=== PATIENT | female | born 1930 | race Caucasian/White ===

== ENCOUNTER 2018-12-02 13:03 | Inpatient (IN) | payer OTHER, MEDICAID ==
[~2018-12-02] VITALS: Ht 170.2 cm; Wt 61.2 kg
--- NOTE | 2018-12-02 13:03 | NUR ---
PT BROUGHT IN BY BLS TO ER BED 03
[2018-12-02 13:21] VITALS: BP 154/77
--- NOTE | 2018-12-02 13:25 | NUR ---
88 Y FEMALE PT BIB TRANSPORT FOR DYSURIA X3 DAYS WITH FOUL ODOR. BROUGHT FROM [facility] FOR DYSURIA AND INCREASED DEMENTIA. FACILITY WANTS TO ENCOURAGE FLUIDS. PT ALERT TO SELF. VSS AT THIS TIME. BED IS DOWN, LOCKED, BED RAIL X 2, ERMD TO SEE PT. MEDHX:DEMENTIA, MUSCLE WEAKNESS, PRIMARY HTN, REPEATED FALLS
--- NOTE | 2018-12-02 13:26 | NUR ---
language barrier pt is arabic speaking
[2018-12-02] MEDS ORDERED: [UNRECOGNIZED DRUG - CODE] OP (13:31)
[2018-12-02] MEDS ORDERED: MEGE40SU3 PO (13:31)
--- NOTE | 2018-12-02 14:25 | NUR ---
Urinary catheter inserted utilizing sterile technique. Immediate return of urine noted. Urine sample collected and sent to lab. Pt tolerated procedure WELL.
--- NOTE | 2018-12-02 14:36 | NUR ---
PATIENT REFUSED EKG. DOCTOR NURSE NOTIFIED.
[2018-12-02 14:39] LABS: BASOPHILS % (AUTO) 0.7 % (0.0-2.0); EOSINOPHILS # (AUTO) 0.2 K/uL (0-0.4); EOSINOPHILS % (AUTO) 3.1 % (0.0-4.0); HEMATOCRIT 35.9 % (36-48); HEMOGLOBIN 11.8 g/dL (12.0-16.0); LYMPHOCYTES # (AUTO) 1.9 K/uL (2.5-16.5); MEAN CORPUSCULAR HEMOGLOBIN 31 pg (27-31); MEAN CORPUSCULAR HGB CONC 33 g/dL (33-37); MONOCYTES # (AUTO) 0.4 K/uL (0.8-1.0); MONOCYTES % (AUTO) 8.8 % (1.7-9.3); NEUTROPHILS # (AUTO) 2.5 K/uL (1.8-7.7); NEUTROPHILS % (AUTO) 49.4 % (42.2-75.2); PLATELET COUNT (AUTO) 199 K/uL (140-450); RED BLOOD CELL COUNT(AUTO) 3.86 MIL/uL (4.20-5.40); RED CELL DISTRIBUTION WIDTH 15.3 % (11.6-13.7); WHITE BLOOD COUNT (AUTO) 5.1 K/uL (4.8-10.8)
[2018-12-02 15:00] LABS: PROTHROMBIN TIME 10.1 secs (10.8-13.4)
[2018-12-02 15:04] LABS: APPEARANCE,URINE HAZY (CLEAR); BILIRUBIN,URINE NEGATIVE (NEGATIVE); BLOOD, URINE NEGATIVE (NEGATIVE); COLOR,URINE YELLOW (YELLOW); LEUKOCYTE ESTERASE ,URINE NEGATIVE (NEGATIVE); NITRITE, URINE NEGATIVE (NEGATIVE); UGLUCOSE NEGATIVE (NEGATIVE)
[2018-12-02 15:06] LABS: MAGNESIUM 2.4 mg/dL (1.8-2.4)
[2018-12-02 15:07] LABS: ASPARTATE AMINOTRANSFERASE 13 U/L (15-37); CARBON DIOXIDE 27.1 mmol/L (21-32); CHLORIDE 103 mmol/L (98-107); CREATININE 0.7 mg/dL (0.6-1.3); GLUCOSE 98 mg/dL (74-106); POTASSIUM 4.1 mmol/L (3.5-5.1); SODIUM SERUM 141 mmol/L (136-145); TOTAL BILIRUBIN 0.3 mg/dL (0.0-1.0); UREA NITROGEN, BLOOD 18 mg/dL (7-18)
[2018-12-02 15:11] LABS: ACETONE, SERUM NEGATIVE (NEGATIVE)
--- NOTE | 2018-12-02 15:28 | NUR ---
VSS AT THIS TIME. PT LAYING IN BED. POSITIONED FOR COMFORT
[2018-12-02] MEDS ORDERED: HYDROcodone/APAP 7.5/325 MG 1 TAB PO PRN (17:30)
[2018-12-02] MEDS ORDERED: DOCUSATE SODIUM 100 MG GELCAP PO PRN (17:30)
[2018-12-02] MEDS ORDERED: ONDANSETRON 4 MG/2 ML VIAL IM/IVP PRN (17:30)
[2018-12-02] MEDS ORDERED: ACETAMINOPHEN 325 MG TAB PO PRN (17:30)
--- NOTE | 2018-12-02 17:30 | NUR ---
JONI CARE PERFORMED. ADAKU EMT ASSISTED. POSITIONED PT FOR COMFORT.
--- NOTE | 2018-12-02 17:55 | NUR ---
Patient will be admitted to care of [facility]. Admited to TELE. Will go to room 110A. Belongings list completed. Report to ANNIE GARCIA.
--- NOTE | 2018-12-02 17:55 | NUR ---
RECEIVED BEDSIDE REPORT FROM ENVIRONMENTAL EMERGENCIES PLANNER EMILIA. PT STABLE, AWAKE, ALERT AND ORIENTED X1. NO SIGNS OF DISTRESS NOTED. VITAL SIGNS TAKEN, PT STABLE. NO REDNESS, SWELLING, OR INFLAMMATION NOTED ON IV SITE. CALL OMER WITHIN REACH. BED IN LOWEST POSITION, BED ALARM ON. SAFETY MEASURES IN PLACE. PLAN OF CARE REVIEWED.
--- NOTE | 2018-12-02 18:00 | NUR ---
PT PULLED OUT IV ON RIGHT AC, CATHETER INTACT, BLEEDING CONTROLLED. JOSE HENDERSON AND JOSE POTTS REINSERTED IV ON LEFT AC 22 G. PT TOLERATED WELL.
[2018-12-02 18:04] LABS: CHOL/HDL RATIO 4.3 (1-4.5); FREE T4 (FREE THYROXINE) 1.17 ng/dL (0.76-1.46); PHOSPHORUS 3.2 mg/dL (2.5-4.9); THYROID STIMULATING HORMONE 1.01 uIU/mL (0.34-3.74)
[2018-12-02] MEDS ORDERED: ALBUTEROL SULFATE/IPRATROPIU 3 ML SOL IH PRN (18:25)
[2018-12-02] MEDS: NACL 0.9% 1,000 ML IV SCH (18:33)
--- NOTE | 2018-12-02 18:33 | NUR ---
IVF STARTED PER MD ORDER.
--- NOTE | 2018-12-02 18:50 | NUR ---
PT PUT ON MITTENS DUE TO PT TRIES TO PULL OUT LINES PER MD ORDER.
[2018-12-02 18:54] VITALS: BP 143/82
[2018-12-02] MEDS: ALBUTEROL SULFATE/IPRATROPIU 3 ML SOL IH SCH (18:57)
--- NOTE | 2018-12-02 19:05 | NUR ---
ENDORSED PT TO JOSE LEMON FOR CONTINUITY OF CARE. PT STABLE.
--- NOTE | 2018-12-02 19:06 | NUR ---
RECEIVED BEDSIDE REPORT FROM AM SHIFT NURSE. PT STABLE, AWAKE, ALERT AND ORIENTED X1. PT CONFUSED. ON TELEMONITORING. NO SIGNS OF DISTRESS NOTED. VITAL SIGNS TAKEN WITH IV SITE BUT PT KEEPS TRYING TO PULL LINES. STARTED ON RESTRAINTS W/ DR. ORDER. CALL OMER WITHIN REACH. BED IN LOWEST POSITION, BED ALARM ON. SAFETY MEASURES IN PLACE. PLAN OF CARE REVIEWED.
[2018-12-02] MEDS ORDERED: MEDICATION REC. PHARMACY CONS. 1 EA MISC MC PRN (19:15)
[2018-12-02] MEDS ORDERED: MAGNESIUM HYDROXIDE 2400 MG/30 ML UDC PO PRN (19:35)
--- NOTE | 2018-12-02 20:00 | NUR ---
PT PULLED OUT IVF DURING OFF ON RESTRAINTS, PLACED ON RESTRAINTS AGAIN. IVF REINSERTED AGAIN ON R FOREARM
[2018-12-02] MEDS ORDERED: TIMOLOL MALEATE OP SCH (21:00)
[2018-12-02] MEDS ORDERED: cefTRIAXone 1,000 MG VIAL ONE (22:25)
--- NOTE | 2018-12-02 23:19 | NUR ---
INFORMED THAT WE TRIED 3X ATTEMPTS OF SOAP SUDS, BY GRAVITY THE SOAP SUDS WOULD NOT FLOW DUE TO IMPACTION. TRIED TO DO MANUAL DIGITAL DISIMPACTION BUT PT CRYING IN PAIN DUE TO PRESENCE OF HEMMORRHOIDS. ORDERED A FLLET ENEMA INSTEAD VERBALLY WHILE AT BEDSIDE. W/ 2 WITNESSES, DROSOPHERE OPERATOR FOR ANAL HEMMORRHODS, AND SOAPS SUDS NOT FLOWING.WILL CARRY OUT FLEET ENEMA ORDERS W/ Addendum: 12/02/18 at 7637 by Kely Cortez RN FLEET ENEMA
[2018-12-02] MEDS ORDERED: SODIUM PHOSPHATE 118 ML ENEM RC PRN (23:20)
[2018-12-02] MEDS: BISACODYL 5 MG TABEC PO PRN (23:50)
[2018-12-03] VITALS: BP 137/67
[2018-12-03 04:00] VITALS: BP 138/67
--- NOTE | 2018-12-03 04:09 | NUR ---
INFORMED DR. IGNACIO INCONTINENT DERMATITIS ON BILATERAL BUTTOCKS- ORDERED HYDRAGUARD. CARRIED OUT ORDER
[2018-12-03] MEDS: NACL 0.9% 1,000 ML IV SCH ×3 (05:57→21:14)
[2018-12-03 06:12] LABS: T4 (THYROXINE) 5.8 ug/dL (4.5-12.0)
--- NOTE | 2018-12-03 06:45 | NUR ---
INFORMED DR. SOTOMAYOR THAT PT COULD NOT STAND STILL FOR CT SCAN OF THE HEAD.TO HAVE CT OF THE HEAD ENDORSED TO AM SHIFT
--- NOTE | 2018-12-03 06:46 | NUR ---
PT IN STABLE CONDITION. ENDORSED TO NEXT SHIFT FOR CONTINUITY OF CARE. FOR CT OF THE HEAD ENDORSED TO AM SHIFT. DR. SOTOMAYOR WANTS TO BE INFORMED ONCE FAMILY VISITS
--- NOTE | 2018-12-03 07:10 | NUR ---
RECEIVED REPORT FROM THE PARTNER NURSE AT BEDSIDE. PT IS AWAKE AND ORIENTED TO SELF. PT HAS SOFT MITTEN RESTRAINTS. IV ON R FA 22G NS AT 80ML/HR. IV SITE IS WRAPPED IN GAUZE. PER PARTNER NURSE, PT HAS PULLED OUT 2 IV'S, BEEN COMBATIVE, BITING AND GRABBING. PT IS BEDREST. SKIN INTACT, SOME INCONTINENT DERMATITIS. PLAN: PT HAS FECAL IMPACTION PER CT OF THE ABD. WILL CONTINUE WITH BOWEL REGIMEN. HEAD CT, EKG, ECHO TODAY. WILL CONTINUE TO MONITOR PT.
[2018-12-03] MEDS: ALBUTEROL SULFATE/IPRATROPIU 3 ML SOL IH SCH ×3 (07:23→19:03)
[2018-12-03 08:00] VITALS: BP 113/65
[2018-12-03] MEDS: LACTOBACILLUS RHAMNOSUS GG 1 EACH CAP PO SCH (08:21)
[2018-12-03] MEDS: MEGESTROL 400 MG/10 ML UDC PO SCH (08:21)
--- NOTE | 2018-12-03 08:34 | NUR ---
PATIENT HAS BEEN SCREENED AND CATEGORIZED HIGH NUTRITION RISK. PATIENT WILL BE SEEN WITHIN 1-2 DAYS OF ADMISSION. 12/03/18-12/04/[address]
[2018-12-03] MEDS ORDERED: MEGESTROL ACETATE 400 MG PO SCH (09:00)
[2018-12-03] MEDS ORDERED: PANTOPRAZOLE 40 MG TABEC PO SCH (09:00)
[2018-12-03 09:06] LABS: TRANSFERRIN 214 mg/dL (200-370)
[2018-12-03] MEDS: BISACODYL 5 MG TABEC PO PRN (09:15)
[2018-12-03 09:23] LABS: BASOPHILS % (AUTO) 0.5 % (0.0-2.0); EOSINOPHILS % (AUTO) 0.4 % (0.0-4.0); HEMATOCRIT 35.4 % (36-48); HEMOGLOBIN 11.9 g/dL (12.0-16.0); LYMPHOCYTES % (AUTO) 30.7 % (20.5-51.1); MEAN CORPUSCULAR HEMOGLOBIN 31 pg (27-31); MEAN CORPUSCULAR HGB CONC 34 g/dL (33-37); MEAN CORPUSCULAR VOLUME 92.4 fL (80-94); MONOCYTES # (AUTO) 0.4 K/uL (0.8-1.0); MONOCYTES % (AUTO) 5.7 % (1.7-9.3); NEUTROPHILS # (AUTO) 4.1 K/uL (1.8-7.7); NEUTROPHILS % (AUTO) 62.7 % (42.2-75.2); PLATELET COUNT (AUTO) 192 K/uL (140-450); RED BLOOD CELL COUNT(AUTO) 3.83 MIL/uL (4.20-5.40); RED CELL DISTRIBUTION WIDTH 14.8 % (11.6-13.7); WHITE BLOOD COUNT (AUTO) 6.5 K/uL (4.8-10.8)
--- NOTE | 2018-12-03 09:40 | NUR ---
TOOK PT TO CT FOR CT HEAD.
[2018-12-03 09:41] LABS: ANION GAP 15.4 (8-16); CARBON DIOXIDE 24.9 mmol/L (21-32); CHLORIDE 108 mmol/L (98-107); CREATININE 0.6 mg/dL (0.6-1.3); GLUCOSE 86 mg/dL (74-106); POTASSIUM 4.3 mmol/L (3.5-5.1); SODIUM SERUM 144 mmol/L (136-145); UREA NITROGEN, BLOOD 15 mg/dL (7-18)
--- NOTE | 2018-12-03 10:00 | NUR ---
PT RETURNED FROM CT. PT TOLERATED WELL.
[2018-12-03 12:00] VITALS: BP 129/73
[2018-12-03 12:28] LABS: FERRITIN 43 ng/mL (15-150); FOLIC ACID 12.4 ng/mL (>3.0)
[2018-12-03] MEDS: HYDRAGUARD CREAM TP SCH (12:29)
--- NOTE | 2018-12-03 14:10 | NUR ---
12/03/18 RD INITIAL ASSESSMENT COMPLETED PLEASE REFER TO NUTRITION ASSESSMENT UNDER CARE ACTIVITY FOR ESTIMATED NUTRITIONAL NEEDS. RD RECOMMENDATIONS: 1. CONTINUE MECHANICAL SOFT DIET WITH ENSURE ENLIVE TID. 2. ENCOURAGE ORAL AND ENSURE ENLIVE INTAKE FOR ADEQUATE NUTRITION INTAKE. 3. RD WILL F/U 2-3 DAYS; HIGH RISK. KISHA FERREIRA, RD
--- NOTE | 2018-12-03 14:30 | NUR ---
DAUGHTER HERE. NOTIFIED DR SOTOMAYOR. CAME AND SPOKE TO DAUGHTER ABOUT THE CT RESULTS, SOME NODULES IN THE LUNGS, CANNOT RULE OUT CANCER. PER FAMILY WISHES, NO BIOPSY. NO TREATMENT.
--- NOTE | 2018-12-03 15:16 | NUR ---
RULING MACHINE SET UP OPERATOR HERE TO DO THE ECHO. PT REFUSED. DR SOTOMAYOR CANCELLED THE ECHO.
[2018-12-03 16:00] VITALS: BP 105/56
--- NOTE | 2018-12-03 19:05 | NUR ---
ENDORSED PT TO THE CHARGE NURSE NURSE AT BEDSIDE. PT IS IN STABLE CONDITION.
--- NOTE | 2018-12-03 19:10 | NUR ---
RECEIVED FROM AM RN IN BED AWAKE AND ALERT. SMILING. ON SOFT WRIST RESTRAINTS RT CONFUSION. PULLING OUT IVRF TUBING AND TRYING TO GET OUT OF BED. DX. GENERALIZED WEAKNESS, COPD WITH HYPERVENTILATION AND CONFUSION. NEEDS WILL BE ANTICIPATED AND WILL BE MET. BED ALARM ON. PT. NEAR NURSES UNIT FOR EASY PHYSICAL VISIBILITY. NO SOB .
--- NOTE | 2018-12-03 20:00 | NUR ---
PT. RELEASED RESTRAINTS FOR 15 MINUTES. TALKED WITH PT. AND SAT DOWN WITH HER FOR A WHILE BY CNAS. SPEAKS ONLY CHINESE. NEEDS ANTICIPATED AND WILL BE MET DURING SHIFT.
--- NOTE | 2018-12-03 20:30 | NUR ---
STOOL SENT TO LAB FOR AMOEBA CHECK ORDERED. PT. CLEANED BY CNAS. KEPT CLEAN AND DRY. NEEDS ANTICIPATED AND MET.
--- NOTE | 2018-12-03 21:00 | NUR ---
PT. STILL AWAKE AND WATCHING TV. SPEAKS ONLY VIETNAMESE. ENCOURAGED TO GO TO SLEEP AND REST . BED ALARM ON.
--- NOTE | 2018-12-03 22:00 | NUR ---
SLEEPING AT THIS TIME. TURNED TO SIDES WITH PILLOW SUPPORT Q 2H. NO RESTLESSNESS NOTED.
--- NOTE | 2018-12-03 22:57 | NUR ---
PT. HAD BIG SOFT LARGE BROWN BM. CLEANED AND KEPT DRY. BEDDINGS CHANGED AND KEPT WARM. WILL MONITOR FREQUENTLY.
[2018-12-04 00:41] VITALS: BP 100/82
--- NOTE | 2018-12-04 00:42 | NUR ---
PT. TURNED TO OTHER SIDE BY CNAS. PT. WOKE UP WHEN TURNED. ENCOURAGED TO GO BACK TO SLEEP.
[2018-12-04] MEDS: HYDRAGUARD CREAM TP SCH ×2 (00:57→13:00)
--- NOTE | 2018-12-04 01:53 | NUR ---
PT. SLEEPING AT THIS TIME. NO RESTLESSNESS . PT. NEEDS ANTICIPATED AND MET. TOTAL CARE RT DEMENTIA WITH CONFUSION AND COMBATIVENESS.
--- NOTE | 2018-12-04 03:00 | NUR ---
PT. AWAKE AND CONFUSED. TRYING TO GET OUT OF BED. REFUSING PERSONAL HYGIENE CARE. BED ALARM ON AND WITH SOFT RESTRAINTS IN PLACE. SOFT RESTRAINTS RELEASED PER PROTOCOL. FREQUENTLY CHECKED BY CNAS, CHARGE NURSE, FLOOR NURSES AND MYSELF. NEEDS ANTICIPATED . INCONTINENT TO B AND B.
--- NOTE | 2018-12-04 04:54 | NUR ---
PT. AM PERSONAL HYGIENE BY CNAS. KEPT DRY, CLEAND AND COMFORTABLE. PT. SLEEPS IN AND OUT. WAKES UP MOST OF TIME. CONFUSED AND COMBATIVE TO PERSONAL HYGIENE CARE.
--- NOTE | 2018-12-04 06:36 | NUR ---
PT. SO AWAKE AND ALERT AT THIS TIME IN A SITTING POSITION IN BED. SMILING. CONFUSED. NEEDS ANTICIPATED THIS SHIFT. BED ALARM ON . WILL ENDORSE TO AM RN FOR CONTINUITY OF CARE.
--- NOTE | 2018-12-04 07:15 | NUR ---
RECEIVED BEDSIDE REPORT FROM SOIL FERTILITY SPECIALIST NURSE. PT IS AWAKE BUT CONFUSED, A&O X 1 TO SELF ONLY, PULLING ON HER IV LINE. SHE HAS A MITTEN ON HER L HAND, BUT THE MITTEN FROM THE R HAND HAD COME OFF. PT IS ON ROOM AIR, SKIN INTACT ASIDE FROM THE INCONTINENCE DERMATITIS ON HER BUTTOCKS. FALL PRECAUTIONS ARE IN PLACE, CALL LIGHT IS WITHIN REACH. WILL CONTINUE TO MONITOR PT.
--- NOTE | 2018-12-04 07:18 | NUR ---
PT PULLED OUT HER IV. NEW IV INSERTED ON THE R FA 22 G. PATENT AND INTACT.
[2018-12-04 07:28] LABS: BASOPHILS % (AUTO) 0.5 % (0.0-2.0); EOSINOPHILS # (AUTO) 0.2 K/uL (0-0.4); EOSINOPHILS % (AUTO) 2.4 % (0.0-4.0); HEMATOCRIT 37.8 % (36-48); HEMOGLOBIN 12.4 g/dL (12.0-16.0); LYMPHOCYTES # (AUTO) 2.9 K/uL (2.5-16.5); LYMPHOCYTES % (AUTO) 45.1 % (20.5-51.1); MEAN CORPUSCULAR HEMOGLOBIN 31 pg (27-31); MEAN CORPUSCULAR HGB CONC 33 g/dL (33-37); MEAN CORPUSCULAR VOLUME 93.3 fL (80-94); MONOCYTES # (AUTO) 0.5 K/uL (0.8-1.0); MONOCYTES % (AUTO) 7.4 % (1.7-9.3); NEUTROPHILS # (AUTO) 2.8 K/uL (1.8-7.7); NEUTROPHILS % (AUTO) 44.6 % (42.2-75.2); PLATELET COUNT (AUTO) 206 K/uL (140-450); RED BLOOD CELL COUNT(AUTO) 4.06 MIL/uL (4.20-5.40); RED CELL DISTRIBUTION WIDTH 15.2 % (11.6-13.7); WHITE BLOOD COUNT (AUTO) 6.3 K/uL (4.8-10.8)
[2018-12-04 08:00] VITALS: BP 124/64
[2018-12-04] MEDS: ALBUTEROL SULFATE/IPRATROPIU 3 ML SOL IH SCH ×3 (08:18→19:00)
[2018-12-04 08:33] LABS: ANION GAP 15.2 (8-16); CHLORIDE 107 mmol/L (98-107); CREATININE 0.6 mg/dL (0.6-1.3); GLUCOSE 91 mg/dL (74-106); POTASSIUM 3.2 mmol/L (3.5-5.1); SODIUM SERUM 143 mmol/L (136-145); UREA NITROGEN, BLOOD 10 mg/dL (7-18)
[2018-12-04 08:35] LABS: MAGNESIUM 2.3 mg/dL (1.8-2.4)
--- NOTE | 2018-12-04 09:14 | NUR ---
PT CLEANED, CHANGED, AND REPOSITIONED.
[2018-12-04] MEDS: MEGESTROL 400 MG/10 ML UDC PO SCH (09:15)
[2018-12-04] MEDS: LACTOBACILLUS RHAMNOSUS GG 1 EACH CAP PO SCH (09:19)
--- NOTE | 2018-12-04 09:54 | NUR ---
PT PULLED OUT HER IV AGAIN. WILL ATTEMPT TO INSERT A NEW IV.
[2018-12-04] MEDS ORDERED: POTASSIUM CHLORIDE 10 MEQ TABER PO SCH (10:15)
--- NOTE | 2018-12-04 14:54 | NUR ---
PT KEEPS TAKING OFF HER RIGHT RESTRAINT MITTEN, AND HAS BEEN NEEDING STAFF TO KEEP HER AWAY FROM PULLING ON HER IV MOST OF THE SHIFT SO FAR. RN CLOSELY MONITORING PT.
[2018-12-04] MEDS ORDERED: LORazepam 2 MG/ML VIAL IM/IVP PRN (16:35)
--- NOTE | 2018-12-04 16:40 | NUR ---
PT HAS BEEN INCREASINGLY AGITATED AND ANXIOUS, TAKING OFF HER RESTRAINTS AND TRYING TO CLIMB OUT OF BED. DR SOTOMAYOR NOTIFIED, SHE ORDERED PRN IV ATIVAN FOR PT'S AGITATION.
--- NOTE | 2018-12-04 18:10 | NUR ---
PT IS CURRENTLY SLEEPING AFTER ADMINISTERING PRN ATIVAN FOR AGITATION.
--- NOTE | 2018-12-04 19:20 | NUR ---
PT ENDORSED TO CITY SECRETARY NURSE IN STABLE CONDITION.
--- NOTE | 2018-12-04 19:21 | NUR ---
RECD. RESTING IN BED SLEEPING COMFORTABLY, IV OF NS AT 80 ML/HR INFUSING RIGHT FOREARM G22. ON BILATERAL SOFT WRIST RESTRAINTS, NO REDNESS IN THE ARMS NOR SIGNS OF DISTRESS NOTED. SAFETY MEASURES ENFORCED. BED ON LOWEST POSITION, ALARM ON. NO APPEARANCE OF PAIN NOTED 0/10.
[2018-12-04] MEDS: NACL 0.9% 1,000 ML IV SCH (19:27)
[2018-12-04 20:00] VITALS: BP 118/59
--- NOTE | 2018-12-04 21:00 | NUR ---
AWAKE, CONFUSED. DINNER TRAY STILL AT THE BEDSIDE. SPOONFUL OF PUDDING GIVEN BUT REFUSED TO EAT, TAKING AWAY NURSE HAND AND RESISTING TO BE FED.
--- NOTE | 2018-12-04 22:00 | NUR ---
Patient's Plan of Care was discussed and reviewed with CADASTRAL ENGINEER: CARMEN MENA
[2018-12-05] VITALS: BP 112/58
--- NOTE | 2018-12-05 | NUR ---
CLEANSED AND REPOSITIONED IN BED WITH PILLOWS. STILL UNCOOPERATIVE. WENT BACK TO SLEEP, COVERED WITH WARM BLANKET.
[2018-12-05] MEDS: HYDRAGUARD CREAM TP SCH ×2 (01:00→13:50)
[2018-12-05] MEDS: NACL 0.9% 1,000 ML IV SCH ×2 (02:51→09:45)
[2018-12-05 04:00] VITALS: BP 129/63
--- NOTE | 2018-12-05 04:00 | NUR ---
AWAKE, STILL CONFUSED, AGITATED. RESISTING VITAL SIGN TO BE TAKEN. NO APPEARANCE OF PAIN NOTED 0/10.
--- NOTE | 2018-12-05 05:00 | NUR ---
SLEEPING COMFORTABLY IN BED.
--- NOTE | 2018-12-05 06:30 | NUR ---
STILL SLEEPING COMFORTABLY. CONDITION REMAIN STABLE. SAFETY MAINTAINED DURING SHIFT. WILL ENDORSE TO AM SHIFT NURSE FOR CONTINUITY OF CARE.
--- NOTE | 2018-12-05 07:10 | NUR ---
ENDORSED TO AM NURSE FOR CONTINUITY OF CARE.
--- NOTE | 2018-12-05 07:12 | NUR ---
RECEIVED BEDSIDE REPORT FROM DRY MOP MAKER NURSE CARMEN FOR CONTINUITY OF CARE. PATIENT WAS RESTING ON BED AT THIS TIME. PATIENT IS AROUSEBLE BY VOICE. PATIENT IS AOX1 TO NAME ONLY. FLACC 0. RESPIRATION EVEN AND UNLABORED ON RA. NO SIGNS OF DISTRESS NOTED. IV ON R FA 22G, INTACT AND CLEAN, INFUSING PER MD ORDER. INCONTINENT DERMATITIS ON JONI AREA NOTED, OTHERWISE SKIN INTACT AND CLEAN. PATIENT IS BEDREST AT THIS TIME. SOFT WRIST RESTRAINTS IN PLACE AND PERFORM RANGE OF MOTION AND CHECK CIRCULATION. BED IN LOW POSITION AND CALL LIGHT WITHIN REACH. INSTRUCTED PATIENT AND DAUGHTER MIKAYLA TO USE THE CALL LIGHT FOR ANY ASSISTANCE.
[2018-12-05 07:52] LABS: BASOPHILS % (AUTO) 0.9 % (0.0-2.0); EOSINOPHILS # (AUTO) 0.3 K/uL (0-0.4); EOSINOPHILS % (AUTO) 5.5 % (0.0-4.0); HEMATOCRIT 33.6 % (36-48); HEMOGLOBIN 11.2 g/dL (12.0-16.0); LYMPHOCYTES # (AUTO) 2.1 K/uL (2.5-16.5); LYMPHOCYTES % (AUTO) 44.3 % (20.5-51.1); MEAN CORPUSCULAR HEMOGLOBIN 31 pg (27-31); MEAN CORPUSCULAR HGB CONC 33 g/dL (33-37); MEAN CORPUSCULAR VOLUME 92.5 fL (80-94); MONOCYTES # (AUTO) 0.5 K/uL (0.8-1.0); MONOCYTES % (AUTO) 9.6 % (1.7-9.3); NEUTROPHILS # (AUTO) 1.9 K/uL (1.8-7.7); NEUTROPHILS % (AUTO) 39.7 % (42.2-75.2); PLATELET COUNT (AUTO) 189 K/uL (140-450); RED BLOOD CELL COUNT(AUTO) 3.63 MIL/uL (4.20-5.40); RED CELL DISTRIBUTION WIDTH 15.3 % (11.6-13.7); WHITE BLOOD COUNT (AUTO) 4.7 K/uL (4.8-10.8)
[2018-12-05 08:00] VITALS: BP 131/78
[2018-12-05 08:14] LABS: ANION GAP 11.2 (8-16); CHLORIDE 112 mmol/L (98-107); CREATININE 0.6 mg/dL (0.6-1.3); GLUCOSE 93 mg/dL (74-106); POTASSIUM 4.2 mmol/L (3.5-5.1); SODIUM SERUM 145 mmol/L (136-145); UREA NITROGEN, BLOOD 7 mg/dL (7-18)
[2018-12-05 08:19] LABS: MAGNESIUM 2.1 mg/dL (1.8-2.4); PHOSPHORUS 3.2 mg/dL (2.5-4.9)
[2018-12-05] MEDS ORDERED: MAGN400S60 PO (08:31)
[2018-12-05] MEDS ORDERED: DOCU-299 PO (08:31)
[2018-12-05] MEDS: LACTOBACILLUS RHAMNOSUS GG 1 EACH CAP PO SCH (09:45)
[2018-12-05] MEDS: MEGESTROL 400 MG/10 ML UDC PO SCH (09:46)
--- NOTE | 2018-12-05 09:47 | NUR ---
ADMINISTERED MEDS PER MD ORDER, PATIENT TOLERATED WELL. PATIENT IS RESTING ON BED AT THIS TIME. NO SIGNS OF DISTRESS NOTED. BED IN LOW POSITION AND CALL LIGHT WITHIN REACH.
--- NOTE | 2018-12-05 11:25 | NUR ---
PATIENT IS RESTING ON BED AT THIS TIME. SPONTANEOUS TO VOICE AND AROUSABLE BY NAME. NO SIGNS OF DISTRESS NOTED. SAFETY MEASURES IN PLACE.
--- NOTE | 2018-12-05 13:20 | NUR ---
PATIENT IS RESTING ON BED AT THIS TIME. NO SIGNS OF DISTRESS NOTED. SAFETY MEASURES IN PLACE. BED IN LOW POSITION AND CALL LIGHT WITHIN REACH.
--- NOTE | 2018-12-05 14:06 | NUR ---
S.T. BEDSIDE SWALLOW EVAL COMPLETED See report for details. Pt presents with mild oral dysphagia c/b limited upper dentition and general weakness. Pharyngeal phase of swallow appeared WFL for textures trialed. Recommend: 1) Downgrade diet texture to mechanical soft ground; thin liquids ok. 2) P.O. meds crushed and mixed with pudding, as pt does not prefer applesauce. No further tx indicated at this time. DC to [facility]. D/w JOSE Greer results/recommendations. Time [id number]
--- NOTE | 2018-12-05 14:27 | NUR ---
CASE MGT: SPOKE WITH RUBIN ( ANESTHESIOLOGIST ASSISTANT @ [facility]) @ ,WHO CONFIRMED WITH EMILIA (DOCUMENT COORDINATOR @ [facility]). PATIENT IS ACCEPTED BACK AND ROOM NUMBER IS 27C. TRANSPORTATION HAS ALSO BEEN APPROVED/AUTHORIZED BY EMILIA. TRANSPORTATION HAS BEEN SETUP WITH [employer] [facility] @ SPOKE WITH [employer] ( DISPATCH). CONTACT CENTER PROFESSIONAL TIME IS AT 6:30PM. Addendum: 12/05/18 at 1434 by Dayana Spencer CM SPOKE WITH PATIENT'S DAUGHTER ( HERMILA TINEO) @ AND INFORMED HER REGARDING DISCHARGE. PATIENT's DAUGHTER AGREED AND APPROVED FOR THE DISCHARGE.
--- NOTE | 2018-12-05 15:15 | NUR ---
PATIENT IS RESTING ON BED AT THIS TIME. NO SIGNS OF DISTRESS NOTED. SAFETY MEASURES IN PLACE.
--- NOTE | 2018-12-05 17:25 | NUR ---
PATIENT IS AWAKE ON BED. NO SIGNS OF DISTRESS NOTED. SAFETY MEASURES IN PLACE.
--- NOTE | 2018-12-05 17:35 | NUR ---
CALLED PATIENT'S DAUGHTER HERMILA TWICE, BUT NO ANSWER. LEFT A VOICE MESSAGE THAT PATIENT WILL BE TRANSFER TO [facility] AT 1830 THIS EVENING FROM THE HOSPITAL AND LEFT A CALL BACK NUMBER.
--- NOTE | 2018-12-05 17:41 | NUR ---
CALLED [facility] AND GAVE FULL REPORT TO LORNA Dc RN. ANSWERED ALL LORNA'S QUESTIONS AND LEFT A CALL # FOR CALL BACK IF HE HAS ANY FURTHER QUESTIONS. LORNA ACKNOWLEDGED THAT PATIENT WILL BE BLAST FURNACE CHECKER FROM THE HOSPITAL AT 1830 AND [address]ED IN ROOM 27c UNDER THE CARE OF DR HANSEN. LORNA REQUESTED TO GIVE THE FACILITY A CALL WHEN PATIENT IS BEING BLAST FURNACE CHECKER FROM THE HOSPITAL. WILL DO WHEN [facility] ARRIVES TO BLAST FURNACE CHECKER THE PATIENT.
--- NOTE | 2018-12-05 18:35 | NUR ---
[facility] ARRIVED TO THE UNIT TO NETWORK MANAGEMENT SPECIALIST PATIENT. DISCHARGE INSTRUCTION DOCUMENTS PRINTED AND PREPARED. PATIENT WAS CONFUSED AND UNABLE TO SIGN. D/C IV AND IV CANNULA INTACT, NO BLEEDING AT IV SITE. REMOVED ALL ARM BANDS. PATIENT IS TRANSFER TO [facility] AT THIS TIME.
--- NOTE | 2018-12-05 18:40 | NUR ---
CALLED [facility] AND INFORMED THAT PATIENT HAS BEEN OPHTHALMIC PATHOLOGIST AND ON THE WAY TO THE FACILITY.
== END 2018-12-05 18:35 | DRG 689 ==
LOC: MED 13:03 → MTU 17:32
PROVIDERS: ADMIT General Practice; ATTEND General Practice
DX: N39.0 Urinary tract infection, site not specified (principal); G93.41 Metabolic encephalopathy; E44.0 Moderate protein-calorie malnutrition; F03.90 Unspecified dementia, unspecified severity, without behavioral disturbance, psychotic disturbance, mood disturbance, and anxiety; E86.0 Dehydration; Z68.21 Body mass index [BMI] 21.0-21.9, adult; I10 Essential (primary) hypertension; J44.9 Chronic obstructive pulmonary disease, unspecified; H40.9 Unspecified glaucoma; D64.9 Anemia, unspecified; E78.5 Hyperlipidemia, unspecified; K56.41 Fecal impaction; E83.39 Other disorders of phosphorus metabolism; D63.8 Anemia in other chronic diseases classified elsewhere
CPT/HCPCS: 36415; 36600; 70450; 71045; 71250; 74018; 80048; 80053; 81003; 82009; 82140; 82150; 82272; 82306; 82550; 82553; 82607; 82728; 82746; 82803; 83036; 83540; 83605; 83690; 83735; 83874; 83880; 84100; 84436; 84439; 84443; 84479; 84484; 85025; 85045; 85610; 85730; 87040; 87081; 87086; 92610; 94640; 97110; 97161-GP; 97530; 99285; C1758; J0696; J1644; J2060; J7030; J7060; J7620; Q0092